=== PATIENT | female | born 1995 | race African-American/Black ===

== ENCOUNTER 2020-12-26 10:26 | Emergency (ER) | payer OTHER ==
[~2020-12-26] VITALS: Ht 157.5 cm; Wt 59.1 kg
[2020-12-26 11:58] LABS: BASO # 0.1 10^3/uL (0.0-0.2); BASO % 0.5 % (0.0-1.0); HEMATOCRIT 34.6 % (36.0-47.0); HEMOGLOBIN 12.4 g/dl (12.0-15.5); LYMPH # 3.8 10^3/uL (1.5-5.0); LYMPH % 24.2 % (24.0-44.0); MEAN CORPUSCULAR HEMOGLOBIN 28.2 pg (27.0-33.0); MEAN CORPUSCULAR HGB CONC 35.8 g/dl (32.0-36.5); MEAN CORPUSCULAR VOLUME 78.8 fl (80.0-96.0); MONO % 6.5 % (2.0-8.0); NEUTROPHILS # 10.8 10^3/uL (1.5-8.5); NEUTROPHILS % 68.4 % (36.0-66.0); PLATELET COUNT, AUTOMATED 342 10^3/uL (150-450); RED BLOOD COUNT 4.39 10^6/uL (4.00-5.40); WHITE BLOOD COUNT 15.8 10^3/uL (4.0-10.0)
--- NOTE | 2020-12-26 12:07 | REP ---
INDICATION: chest pain, sob COMPARISON: None. TECHNIQUE: PA and lateral. FINDINGS: The mediastinum and cardiac silhouette are normal. The lung khalil are clear and without acute consolidation, effusion, or pneumothorax. The skeletal structures are intact and normal. IMPRESSION: No acute cardiopulmonary process. <Electronically signed by Blaze Jenkins > 12/26/20 [id number]
[2020-12-26] MEDS ORDERED: ALBUTEROL 90 MCG/ACT 8GM HFA INHALER INH ONE (12:10)
[2020-12-26] MEDS ORDERED: VENTAER INH (13:23)
[2020-12-26 13:31] VITALS: BP 137/87
--- NOTE | 2020-12-26 17:30 | ECGEPIP ---
[facility] - ED Test Date: 2020-12-26 Pat Name: LUCERO MANSFIELD Department: Room: - Gender: Female Utility Lineman: MILTON : 1995 Requested By: STEPHANIE FRANCOIS PA-C. Order Number: [id number] Reading MD: Ayaka Granados Measurements Intervals [place] Rate: 71 P: 60 WA: 134 QRS: 50 QRSD: 72 T: -16 QT: 386 QTc: 419 Interpretive Statements Normal sinus rhythm with sinus arrhythmia T wave abnormality, consider ischemia no prior Electronically Signed on 12-26-2020 17:30:21 EST by Ayaka Granados
== END 2020-12-26 13:35 | disposition home or self-care (01) ==
LOC: EDBD 10:26 → M ED 10:26
DX: J45.990 Exercise induced bronchospasm (principal)

== ENCOUNTER → 2021-04-29 | Outpatient (CLI) | payer OTHER ==
[~2021-04-29] MED LIST: METHACHOLINE KIT (J7674) INH ONE; VENTAER INH
== END ==
LOC: M CARPUL 14:05
PROVIDERS: ATTEND Nurse Practitioner Adult Health
DX: R06.02 Shortness of breath (principal)

== ENCOUNTER 2021-12-29 10:07 | Emergency (ER) | payer OTHER ==
[~2021-12-29 10:07] MED LIST changes: -METHACHOLINE KIT (J7674) INH ONE
[2021-12-29] MEDS ORDERED: MULTTAB20 PO (10:24)
[2021-12-29] MEDS ORDERED: ONDANSETRON 4MG/2ML VIAL IV ONE (11:10)
[2021-12-29] MEDS ORDERED: NS 1,000 ML IV ONE (11:10)
[2021-12-29] MEDS ORDERED: FAMOTIDINE INJ 20MG/2ML VIAL (S0028 PER 1) IVP ONE (11:10)
[2021-12-29 11:48] LABS: BASO # 0.1 10^3/uL (0.0-0.2); BASO % 0.4 % (0.0-1.0); EOS # 0.1 10^3/uL (0.0-0.5); EOS % 0.4 % (0.0-3.0); HEMATOCRIT 31.7 % (36.0-47.0); HEMOGLOBIN 11.5 g/dl (12.0-15.5); LYMPH # 3.3 10^3/uL (1.5-5.0); LYMPH % 20.5 % (24.0-44.0); MEAN CORPUSCULAR HEMOGLOBIN 27.8 pg (27.0-33.0); MEAN CORPUSCULAR HGB CONC 36.3 g/dl (32.0-36.5); MEAN CORPUSCULAR VOLUME 76.8 fl (80.0-96.0); MONO % 6.3 % (2.0-8.0); NEUTROPHILS # 11.4 10^3/uL (1.5-8.5); NEUTROPHILS % 71.9 % (36.0-66.0); PLATELET COUNT, AUTOMATED 304 10^3/uL (150-450); RED BLOOD COUNT 4.13 10^6/uL (4.00-5.40); WHITE BLOOD COUNT 15.9 10^3/uL (4.0-10.0)
[2021-12-29 12:18] LABS: ALBUMIN 3.9 GM/DL (3.2-5.2); ALT/SGPT 21 U/L (12-78); BILIRUBIN,DIRECT < 0.1 MG/DL (0.0-0.2); BILIRUBIN,TOTAL 0.6 MG/DL (0.2-1.0); BLOOD UREA NITROGEN 7 MG/DL (7-18); CALCIUM LEVEL 9.4 MG/DL (8.5-10.1); CARBON DIOXIDE LEVEL 26 MEQ/L (21-32); CHLORIDE LEVEL 104 MEQ/L (98-107); CREATININE FOR GFR 0.54 MG/DL (0.55-1.30); GLOMERULAR FILTRATION RATE > 60.0 (>60); GLUCOSE, FASTING 80 MG/DL (70-100); LIPASE 76 U/L (73-393); POTASSIUM SERUM 4.6 MEQ/L (3.5-5.1); SODIUM LEVEL 136 MEQ/L (136-145); TOTAL PROTEIN 7.4 GM/DL (6.4-8.2)
[2021-12-29] MEDS ORDERED: ONDA4TAB6 PO (14:34)
[2021-12-29 14:40] VITALS: BP 124/58
== END 2021-12-29 14:55 | disposition home or self-care (01) ==
LOC: M ED 10:07
DX: O99.612 Diseases of the digestive system complicating pregnancy, second trimester (principal); K52.9 Noninfective gastroenteritis and colitis, unspecified; Z79.51 Long term (current) use of inhaled steroids; Z3A.11 11 weeks gestation of pregnancy
CPT/HCPCS: 76801; 76857; 80048; 80076; 81001; 83690; 85025; 87798; 93976; 96361; 96374; 99284; J2405

== ENCOUNTER 2022-05-20 23:37 | Outpatient (CLI) | payer OTHER ==
[~2022-05-20] VITALS: Ht 157.5 cm; Wt 64.0 kg
[~2022-05-20 23:37] MED LIST changes: +MULTTAB20 PO; +ONDA4TAB6 PO
[2022-05-21 00:27] VITALS: BP 132/71
[2022-05-21] MEDS ORDERED: TERBUTALINE SULFATE 1 MG/ML VIAL (J3105) SC STA (01:05)
[2022-05-21 03:40] LABS: GC DNA AMPLIFICATION NEGATIVE (NEGATIVE)
[2022-05-21 03:43] VITALS: BP 130/76
== END 2022-05-21 03:44 | disposition home or self-care (01) ==
LOC: M LDO 23:37
PROVIDERS: ATTEND Obstetrics & Gynecology
DX: O47.03 False labor before 37 completed weeks of gestation, third trimester (principal); Z3A.32 32 weeks gestation of pregnancy; Z79.899 Other long term (current) drug therapy
CPT/HCPCS: 59025; 81001; 87081; 87088; 87186; 87810; 87850; 96372; G0378; G0463; J3105

== ENCOUNTER 2022-07-04 19:54 | Inpatient (IN) | payer OTHER ==
[~2022-07-04] VITALS: Ht 157.5 cm; Wt 64.2 kg
[2022-07-04 20:26] VITALS: BP 133/63
[2022-07-04 21:56] LABS: HEMATOCRIT 29.2 % (36.0-47.0); HEMOGLOBIN 10.6 g/dl (12.0-15.5); MEAN CORPUSCULAR HEMOGLOBIN 29.1 pg (27.0-33.0); MEAN CORPUSCULAR HGB CONC 36.3 g/dl (32.0-36.5); MEAN CORPUSCULAR VOLUME 80.2 fl (80.0-96.0); PLATELET COUNT, AUTOMATED 234 10^3/uL (150-450); RED BLOOD COUNT 3.64 10^6/uL (4.00-5.40); WHITE BLOOD COUNT 15.2 10^3/uL (4.0-10.0)
[2022-07-04] MEDS ORDERED: PENICILLIN G POTASSIUM IV 5 MU in D5W MINI-BAG PLUS 100 ML IV STA (22:33)
[2022-07-04] MEDS ORDERED: METHYLERGONOVINE MALEATE 0.2 MG/ML VIAL (J2210) IM PRN (22:35)
[2022-07-04] MEDS ORDERED: TRANEXAMIC ACID INJection 1,000 MG in NS 100 ML IV PRN (22:35)
[2022-07-04] MEDS ORDERED: OXYTOCIN DRIP 30 UNITS in IV 1 EA IV PRN ×4 (22:35)
[2022-07-04] MEDS ORDERED: OXYTOCIN INJ 10 UNITS/ML VIAL (J2590) IV PRN (22:35)
[2022-07-04] MEDS ORDERED: LACTATED RINGER'S 1000 ML IV ONE (22:35)
[2022-07-04] MEDS ORDERED: OXYTOCIN DRIP 30 UNITS in IV 1 EA IV SCH (22:35)
[2022-07-04] MEDS: LR 1,000 ML IV SCH (22:57)
[2022-07-05] VITALS (40 sets, daily range): BP systolic 103–150; BP diastolic 52–96
[2022-07-05] MEDS: PENICILLIN G POTASSIUM IV 2.5 MU in IV 1 EA IV SCH ×3 (03:30→11:32)
[2022-07-05] MEDS: LR 1,000 ML IV SCH ×2 (06:35→09:33)
[2022-07-05] MEDS ORDERED: FENTANYL/ROPIVACAINE/NACL BAG 100 ML EPIDURAL SCH (07:25)
[2022-07-05] MEDS ORDERED: diphenhydrAMINE 50MG/ML VIAL (J1200) IV PRN (07:25)
[2022-07-05] MEDS ORDERED: LR 500 ML IV PRN (07:25)
[2022-07-05] MEDS ORDERED: NALOXONE INJ 0.4MG/1ML VIAL (J2310 PER 1MG) IV PRN (07:25)
[2022-07-05] MEDS ORDERED: EPIDURAL/PCA KEYS XX PRN (07:25)
[2022-07-05] MEDS ORDERED: ePHEDrine SULFATE 25 MG/5 ML(5MG/ML) SYRINGE IVP PRN (07:25)
[2022-07-05] MEDS ORDERED: ONDANSETRON 4MG 2ML VIAL IV PRN (07:25)
[2022-07-05] MEDS ORDERED: FENTANYL 2MCG/ML ROPIVACAINE 0.2% IN 0.9% NACL 100ML IVBAG As Ordered ONE (07:27)
[2022-07-05 12:29] LABS: CORD GAS ABE V -1.3; CORD GAS HCO3 V 23.6 MEQ/L; CORD GAS O2 SAT V 77.9 %; CORD GAS PH V 7.388 UNITS; CORD GAS PO2 V 29.8 mmHg; CORD GAS TCO2 V 24.8 MEQ/L
[2022-07-05] MEDS ORDERED: OXYTOCIN DRIP 30 UNITS in IV 1 EA IV SCH (12:30)
[2022-07-05] MEDS ORDERED: IBUPROFEN 600MG TAB PO PRN (12:30)
[2022-07-05] MEDS ORDERED: DIBUCAINE 1% OINTMENT 30GM TOP PRN (12:30)
[2022-07-05] MEDS ORDERED: OXYTOCIN INJ 10 UNITS/ML VIAL (J2590) IV ONE (12:30)
[2022-07-05] MEDS ORDERED: METHYLERGONOVINE MALEATE 0.2 MG TAB PO PRN (12:30)
[2022-07-05] MEDS ORDERED: ANUSOL HC CREAM 30GM TOP PRN (12:30)
[2022-07-05] MEDS ORDERED: MOM 30ML SUSPENSION UDC PO PRN (12:30)
[2022-07-05] MEDS ORDERED: ACETAMINOPHEN TAB 650MG DOSE (2X325MG) PO PRN (12:30)
[2022-07-05] MEDS ORDERED: METHYLERGONOVINE MALEATE 0.2 MG/ML VIAL (J2210) IM PRN (12:30)
[2022-07-05] MEDS ORDERED: RHOGAM 300 MCG (1500 IU) INJ (J2790) IM SCH (12:30)
[2022-07-05] MEDS ORDERED: DOCUSATE SODIUM 100MG CAPSULE PO PRN (12:30)
[2022-07-05 12:32] LABS: CORD GAS ABE A -5.7; CORD GAS HCO3 A 18.3 MEQ/L; CORD GAS O2 SAT A 76.7 %; CORD GAS PH A 7.376 UNITS; CORD GAS PO2 A 29.2 mmHg; CORD GAS SBC A 19.4 MEQ/L; CORD GAS TCO2 A 19.3 MEQ/L
[2022-07-05] MEDS ORDERED: OXYTOCIN DRIP 30 UNITS in IV 1 EA IV ONE (13:00)
[2022-07-05] MEDS ORDERED: LR 1,000 ML IV SCH (13:00)
[2022-07-06 06:00] VITALS: BP 111/56
[2022-07-06 08:03] LABS: HEMOGLOBIN 9.7 g/dl (12.0-15.5); MEAN CORPUSCULAR HEMOGLOBIN 29.1 pg (27.0-33.0); MEAN CORPUSCULAR HGB CONC 35.9 g/dl (32.0-36.5); MEAN CORPUSCULAR VOLUME 81.1 fl (80.0-96.0); PLATELET COUNT, AUTOMATED 198 10^3/uL (150-450); RED BLOOD COUNT 3.33 10^6/uL (4.00-5.40)
[2022-07-06] MEDS: PRENATAL VITAMINS CHEWABLE TABLET PO SCH (08:43)
[2022-07-06 18:00] VITALS: BP 126/84
[2022-07-06] MEDS: ACETAMINOPHEN 500 MG TAB PO PRN (19:59)
[2022-07-07 06:00] VITALS: BP 128/71
[2022-07-07] MEDS ORDERED: IBUP-1022 PO (07:09)
[2022-07-07] MEDS ORDERED: ACET1TAB55 PO (07:09)
[2022-07-07] MEDS: PRENATAL VITAMINS CHEWABLE TABLET PO SCH (08:23)
[2022-07-07] MEDS: ACETAMINOPHEN 500 MG TAB PO PRN (08:33)
[2022-07-07] MEDS ORDERED: MEASLES,MUMPS,RUBELLA VACCINE INJ (MMR-II) (90707) SC.IMMUN ONE (09:00)
== END 2022-07-07 12:51 | disposition home or self-care (01) | DRG 807 ==
LOC: M LDI 19:54 → M OBS 07-05 14:57
PROVIDERS: ADMIT Obstetrics & Gynecology; ATTEND Obstetrics & Gynecology
PROC: 3E033VJ Introduction of Other Hormone into Peripheral Vein, Percutaneous Approach (ICD-10-PCS; 2022-07-04)
PROC: 10E0XZZ Delivery of Products of Conception, External Approach (ICD-10-PCS; principal; 2022-07-05)
PROC: 10907ZC Drainage of Amniotic Fluid, Therapeutic from Products of Conception, Via Natural or Artificial Opening (ICD-10-PCS; 2022-07-05)
DX: O36.5930 Maternal care for other known or suspected poor fetal growth, third trimester, not applicable or unspecified (principal); Z37.0 Single live birth; Z3A.39 39 weeks gestation of pregnancy; O99.824 Streptococcus B carrier state complicating childbirth; J45.909 Unspecified asthma, uncomplicated; O99.52 Diseases of the respiratory system complicating childbirth; O69.81X0 Labor and delivery complicated by cord around neck, without compression, not applicable or unspecified

== ENCOUNTER 2022-08-17 11:58 | Emergency (ER) | payer OTHER ==
[~2022-08-17] VITALS: Ht 160 cm; Wt 56.3 kg
[~2022-08-17 11:58] MED LIST changes: +ACET1TAB55 PO; +IBUP-1022 PO
[2022-08-17 15:33] LABS: BASO # 0.1 10^3/uL (0.0-0.2); BASO % 0.8 % (0.0-1.0); EOS # 0.1 10^3/uL (0.0-0.5); EOS % 1.1 % (0.0-3.0); HEMATOCRIT 34.9 % (36.0-47.0); HEMOGLOBIN 12.3 g/dl (12.0-15.5); LYMPH # 4.6 10^3/uL (1.5-5.0); MEAN CORPUSCULAR HEMOGLOBIN 27.9 pg (27.0-33.0); MEAN CORPUSCULAR HGB CONC 35.2 g/dl (32.0-36.5); MEAN CORPUSCULAR VOLUME 79.1 fl (80.0-96.0); MONO # 0.6 10^3/uL (0.0-0.8); NEUTROPHILS # 5.2 10^3/uL (1.5-8.5); PLATELET COUNT, AUTOMATED 349 10^3/uL (150-450); RED BLOOD COUNT 4.41 10^6/uL (4.00-5.40); WHITE BLOOD COUNT 10.6 10^3/uL (4.0-10.0)
[2022-08-17] MEDS ORDERED: KETOROLAC 30 MG/ML 1ML VIAL IV ONE (15:45)
[2022-08-17 16:07] LABS: URINE PREG TEST NEGATIVE (NEGATIVE)
[2022-08-17 16:26] LABS: ALBUMIN 3.9 GM/DL (3.2-5.2); ALT/SGPT 40 U/L (12-78); BILIRUBIN,DIRECT 0.2 MG/DL (0.0-0.2); BILIRUBIN,TOTAL 0.5 MG/DL (0.2-1.0); BLOOD UREA NITROGEN 14 MG/DL (7-18); CALCIUM LEVEL 9.4 MG/DL (8.5-10.1); CARBON DIOXIDE LEVEL 25 MEQ/L (21-32); CHLORIDE LEVEL 106 MEQ/L (98-107); CREATININE FOR GFR 0.74 MG/DL (0.55-1.30); GLOMERULAR FILTRATION RATE > 60.0 (>60); GLUCOSE, FASTING 86 MG/DL (70-100); LIPASE 120 U/L (73-393); POTASSIUM SERUM 4.2 MEQ/L (3.5-5.1); SODIUM LEVEL 136 MEQ/L (136-145); TOTAL PROTEIN 7.8 GM/DL (6.4-8.2)
[2022-08-17 18:02] VITALS: BP 126/82
== END 2022-08-17 18:03 | disposition home or self-care (01) ==
LOC: M ED 11:58
DX: R10.32 Left lower quadrant pain (principal); J45.909 Unspecified asthma, uncomplicated
CPT/HCPCS: 76856; 80048; 80076; 81000; 83690; 84703; 85025; 87086; 93976; 96374; 99284; J1885

== ENCOUNTER 2024-01-27 20:33 | Emergency (ER) | payer OTHER ==
[~2024-01-27] VITALS: Ht 160 cm; Wt 59.5 kg
[2024-01-27 20:34] VITALS: BP 124/72; TEMP 98.4; O2SAT 99
[2024-01-27] MEDS ORDERED: TETRACAINE 0.5% OPHTH SOLN 4ML As Ordered ONE (22:39)
[2024-01-27] MEDS: FLUORESCEIN OPHTH 1MG STRIP OD ONE (22:40)
[2024-01-27] MEDS: TETRACAINE 0.5% OPHTH SOLN 4ML OD ONE (22:40)
== END 2024-01-27 23:00 | disposition home or self-care (01) ==
LOC: M ED 20:33
DX: H57.8A1 Foreign body sensation, right eye (principal); J45.909 Unspecified asthma, uncomplicated